=== PATIENT | male | born 1975 | race Caucasian/White ===

== ENCOUNTER 2019-08-03 10:53 | Observation (INO) | payer OTHER ==
[~2019-08-03] VITALS: Ht 167.6 cm; Wt 95.4 kg
[2019-08-03 11:46] LABS: BASO % 0.3 % (0.0-2.0); EOS # 0.1 (0.0-0.7); EOS % 1.3 % (0-4.0); GRAN # 6.3 (1.4-6.5); GRAN % 72.1 % (42.2-75.2); HEMATOCRIT 40.2 % (42.0-52.0); HEMOGLOBIN 14.2 g/dl (13.5-18.0); LYMPH # 1.5 (1.2-3.4); LYMPH % 17.4 % (20.0-51.0); MEAN CELL VOLUME 90 fl (80.0-100.0); MEAN CORPUSCULAR HEMOGLOBIN 32 pg (27.0-31.0); MEAN CORPUSCULAR HGB CONC 35 g/dl (33.0-37.0); MEAN PLATELET VOLUME 9.3 fl (7.4-10.4); MONO # 0.8 (0.1-0.6); MONO % 8.6 % (1.7-9.3); PLATELET COUNT 214 K/mm3 (130-400); RED BLOOD COUNT 4.48 M/mm3 (4.20-5.60)
[2019-08-03 11:53] LABS: ALBUMIN 4.2 gm/dL (3.5-5.0); BILIRUBIN,TOTAL 0.7 mg/dL (0.0-1.0); CALCIUM 8.8 mg/dL (8.4-10.2); CREATININE, serum 0.92 (0.66-1.25); POTASSIUM 3.9 mmol/L (3.4-5.0); TOTAL PROTEIN 7.6 gm/dL (6.4-8.2)
[2019-08-03] MEDS ORDERED: MOBIC 7.5MG7.5 MG PO (11:53)
[2019-08-03 12:04] LABS: C-REACTIVE PROTEIN 13.1 mg/dL (0.0-0.9)
--- NOTE | 2019-08-03 13:52 | NUR ---
Dr Long here to see patient.
[2019-08-03 15:43] VITALS: BP 110/69; PULSE 62; TEMP 98.5
[2019-08-03 19:40] VITALS: BP 111/68; PULSE 65; TEMP 98.1
[2019-08-04] VITALS (7 sets, daily range): BP systolic 95–118; BP diastolic 55–71; PULSE 57–72; TEMP 97.8–99.6
--- NOTE | 2019-08-04 00:33 | NUR ---
Patient alert and oriented IV antibiotics running at this time. Patient states pain is located in abdomen rating at 1/10. Patient denies needs at this time.
[2019-08-04 06:53] LABS: BASO % 0.4 % (0.0-2.0); EOS # 0.3 (0.0-0.7); EOS % 3.3 % (0-4.0); GRAN # 5.4 (1.4-6.5); GRAN % 70.6 % (42.2-75.2); HEMOGLOBIN 13.7 g/dl (13.5-18.0); LYMPH # 1.3 (1.2-3.4); LYMPH % 17.3 % (20.0-51.0); MEAN CELL VOLUME 90 fl (80.0-100.0); MEAN CORPUSCULAR HEMOGLOBIN 31 pg (27.0-31.0); MEAN CORPUSCULAR HGB CONC 34 g/dl (33.0-37.0); MEAN PLATELET VOLUME 9.6 fl (7.4-10.4); MONO # 0.6 (0.1-0.6); MONO % 8.1 % (1.7-9.3); PLATELET COUNT 209 K/mm3 (130-400); RED BLOOD COUNT 4.45 M/mm3 (4.20-5.60); REDCELL DISTRIBUTION WIDTH-CV 11.9 % (11.5-14.5)
[2019-08-04 06:59] LABS: CALCIUM 8.6 mg/dL (8.4-10.2); CREATININE, serum 1.08 (0.66-1.25); POTASSIUM 3.9 mmol/L (3.4-5.0)
--- NOTE | 2019-08-04 07:35 | NUR ---
Sitting up in bed. Denies pain at this time. Ate 75% of clear liquid breakfast. IV infusing without difficulty, site without redness/swelling/drainage. Patient denies needs at this time.
--- NOTE | 2019-08-04 09:15 | NUR ---
Initial visit; Patient thanked St[employer] Machine Operator Helper for looking in on him and offering Spiritual Care and thanking him for his Service for all of us.
--- NOTE | 2019-08-04 10:09 | NUR ---
Sitting up in bed. Denies any abd pain. Voices no further needs at this time.
--- NOTE | 2019-08-04 11:17 | NUR ---
Production Repairer met with patient to discuss discharge planning. Patient lives on [address] with his , Magalis (ph#[phone]). Patient's primary care physician is Captain Bowden. Patient obtains medications from [facility]. Patient does not use any DME and is independent with [facility]LS. Patient reports he has a general DPOA completed which designates his . Patient plans to return home upon discharge and reports no concerns at this time.
--- NOTE | 2019-08-04 18:01 | NUR ---
Sitting up in bed with eyes open. No complaints or concerns at this time. Family in room visiting with the patient.
--- NOTE | 2019-08-04 21:26 | NUR ---
Pt IV site to left hand wrapped for shower. Denies pain a this time.
--- NOTE | 2019-08-04 22:00 | NUR ---
IVF CONNECTED. PATIENT AMBULATED IN HALLWAY AFTER SHOWER. SITE TO LEFT HAND WITHOUT REDNESS OR SWELLING. IS ALERT AND ORIENTED X4. DENIES PAIN AT THIS TIME.
--- NOTE | 2019-08-05 00:30 | NUR ---
IV antibiotic connected after flushing left hand IV site with NS. Pt denies need for pain meds at this time.
[2019-08-05 04:08] VITALS: BP 98/60; PULSE 61; TEMP 98
--- NOTE | 2019-08-05 04:20 | NUR ---
PT RESTING WELL, IVF INFUSING TO LEFT HAND WITHOUT REDNESS OR SWELLING.
[2019-08-05 07:25] LABS: HEMATOCRIT 40.6 % (42.0-52.0); HEMOGLOBIN 13.7 g/dl (13.5-18.0); MEAN CELL VOLUME 90 fl (80.0-100.0); MEAN CORPUSCULAR HEMOGLOBIN 30 pg (27.0-31.0); MEAN CORPUSCULAR HGB CONC 34 g/dl (33.0-37.0); MEAN PLATELET VOLUME 9.7 fl (7.4-10.4); PLATELET COUNT 205 K/mm3 (130-400); RED BLOOD COUNT 4.51 M/mm3 (4.20-5.60); REDCELL DISTRIBUTION WIDTH-CV 11.9 % (11.5-14.5)
[2019-08-05 07:26] VITALS: BP 116/70; PULSE 67; TEMP 98.1
[2019-08-05 07:51] LABS: BAND 3 % (0-10); BASOPHIL 1 % (0-2); EOSINOPHIL 8 % (0-4); LYMPHOCYTE 27 % (20.0-51.0); NEUTROPHILS 54 % (42.0-75.2); PLATELET ESTIMATE NORMAL (NORMAL)
--- NOTE | 2019-08-05 08:00 | NUR ---
Patient sitting up in bed resting. Alert and oriented x 3. Assessment complete. Patient independent in room. Tolerating diet without difficulties. Denies pain at this time. Fluids infusing per orders to right hand IV. Denies further needs at this time.
--- NOTE | 2019-08-05 10:00 | NUR ---
Patient showered independently. Continues to deny pain or further needs
[2019-08-05 11:04] VITALS: BP 121/67; PULSE 65; TEMP 97.6
[2019-08-05 15:51] VITALS: BP 120/75; PULSE 68; TEMP 98.1
[2019-08-05] MEDS ORDERED: FLAGYL500 MG PO (16:23)
[2019-08-05] MEDS ORDERED: AMOXICILLIN 8751 TAB PO (16:23)
--- NOTE | 2019-08-05 17:03 | NUR ---
Discharge instructions provided to patient. Educated on when to call provider and follow up appointment. Continues to deny pain or further needs at this time. All questions answered. INT to left hand discontinued. Patient ambulated out with surgical staff.
== END 2019-08-05 17:05 | disposition home or self-care (01) ==
LOC: COL.ER 10:53 → SURG 12:22
PROVIDERS: Emergency Medicine; ADMIT Surgery
DX: K57.32 Diverticulitis of large intestine without perforation or abscess without bleeding (principal)
CPT/HCPCS: G0378; J1650; J2543; J7030; J7120; Q9967